=== PATIENT | male | born 2000 | race Caucasian/White ===

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

== ENCOUNTER 2023-10-27 13:30 | Outpatient (RCR) | payer OTHER, MEDICAID, SELFPAY ==
--- NOTE | 2023-09-08 15:21 | HP.PTEVAL_ITS ---
Patient's Visit Information Visit Information Visit Information: COLTON BROWN is a 23 year old M referred to Physical Therapy by Darvin Trinh PA-C with a diagnosis of LATERAL DISLOCATION OF LEFT PATELLA. Date of Evaluation: 09/08/23 Physical Therapist: Freddy Oviedo, PT, Cert MDT, OCS Visit Plan Frequency: 2-3x /Week Duration: 6 Weeks Plan: WBAT WITH CRUTCHES WITH BRACE LOOCKED IN EXTENSION [place] TO UNLOCK 80 DEGREES PT INTERVENTIONS ROM INITIALLY MAT EXERCISES 4 WAY SLR,STRENGTHENING QUADS/HAMS/HIP CLOSED CHAIN , PROPRIOCEPTION ,FUNCTIONAL STRENGTHENING AND ESTIM/CP AND VASO FOR EDEMA KNEE Subjective Subjective: This 23 y/o male presents to physical therapy with left knee patella lateral dislocation. Patient fell 08/26/23 dislocated patella and relocated when stood up assist by father. Patient seen [facility] 08/29/[address] in brace locked in extension with walking WBAT with crutches and able to unlock to 80 degrees. Patient did x-rays-. Patient had no medication. Patient edema in knee which has improved. Patient pain getting better otherwise global knee. Patient denies paresthesia/tingling -. Patient has limitations with walking and standing unable to squat and kneeling. Patient unable RTW.Patient does steps one step at time. Patient condition affects QOL and function. Patient goals to decrease pain and return to prior level of function. SOCAIL: LIVES WITH PARENTS VOACTION: cafe Objective Objective: POSTURE: mild forward posture hips/knee flexed left side -Patella justo- GAIT: ambulates with crutches with WBAT with brace 2 point gait NEURO:denies paresthesia/tingling PALPATION: global patella medial lateral AROM: 5 -85 Degrees supine flexion MMT: (peak force) quads/hams 0/5 ,hip flexion 10.8 ,hip abd 0 QUADS SET: poor OBSERVATION: atrophied quads EDEMA: joint line 47.8 cm Special Tests R Knee Valgus - MCL: Negative R Knee Varus - LCL: Negative R Knee Patellar Apprehension - PFS: Negative R Knee Patellar Grind - PFS: Negative Balance/Special Test Scores Lower Extremity Functional Score: 25 Goals Goal 1:: Patient to be I with HEP Goal Time Frame: 4-6 Weeks Goal 2:: Patient to normalize gait Goal Time Frame: 4-6 Weeks Goal 3:: Patient to improve AROM knee flexion 0-125 degrees to improve stairs Goal Time Frame: 4-6 Weeks Goal 4:: Patient to improve peak force quads/hams /hip by 15-20 # strength to improve function Goal Time Frame: 4-6 Weeks Goal 5:: Patient to improve LFES score by 10-15 points to improve function and QOL Goal Time Frame: 6-8 Weeks Rehabilitation Potential Physical Therapy Diagnosis: This patient dislocated patella and relocated on own with pain ,edema ,decrease ROM ,weakness quads/hams /hip impairs gait and poor proprioception thus benefit from skilled PT Rehabilitation Potential: Good Anticipated Interventions Patient/Client Instruction: Educate patient on: Condition and Plan of Care For the Purpose of:: To decrease pain, To increase ROM, To improve nutrient delivery to tissue, To increase oxygenation perfusion, To improve muscle performance and motor function, To improve ability to perform ADL's, To increase tolerance to activity/condition/position, To improve ability of physical actions for home/community/work/leisure, To improve health of tissue, To increase flexibility/ROM, To improve balance, To improve health and function and To improve tolerance to ADL's Therapeutic Exercise to Include: Strength training, Endurance training, Balance training, Flexibilty training, Gait and locomotor training, Passive ROM and Active ROM Comment: QUADS/HAMS/HIP For the Purpose of:: To decrease pain, To decrease swelling/inflammation, To increase ROM, To improve nutrient delivery to tissue, To increase oxygenation perfusion, To improve muscle performance and motor function, To increase tolerance to activity/condition/position, To improve ability of physical actions for home/community/work/leisure, To improve gait and locomotor functions, To improve health of tissue, To decrease soft tissue restriction, To increase flexibility/ROM, To improve endurance, To improve balance and To reduce risk of recurrence TENS: Yes IF ES: Yes Cryotherapy (ice pack, ice massage): Yes Vasopneumatic device: Yes For the Purpose of:: To decrease pain, To decrease swelling/inflammation, To increase ROM, To improve nutrient delivery to tissue, To increase oxygenation perfusion, To improve health of tissue, To decrease soft tissue restriction and To improve tolerance to ADL's Text: Thank you for the opportunity to evaluate your patient. For Medicare and Medicare HMO plans, please review the plan of care and approve it. It will need to be FAXED BACK to us at [phone] for Medicare purposes. For Medicare only, by signing this I certify the plan of care. Please let me know if there are questions or concerns regarding this plan of care. Physician Ferny field: Date:
--- NOTE | 2023-10-27 13:47 | HP.PTDCSUM ---
Discharge Summary D/C summary: It has been my pleasure to treat COLTON BROWN referred by Darvin Trinh PA-C, with the diagnosis of LATERAL DISLOCATION OF LEFT PATELLA for a total of 13 visit(s). Discharge Date: 10/27/23 Please see the following information for a summary of their discharge status. Subjective Subjective: Seen Dr doing well okay to release to all activity and brace with baseball Overall Improvement % Improvement: 100 Objective Objective/Function: POSTURE: WFL GAIT: normal pratik MMT: quads 36 .8 ,hamstring 33.8 AROM: 0-135 SUPINE KNEE FLEXION Goals Goal 1:: Patient to be I with HEP Goal Progress: Goal Met Goal 2:: Patient to normalize gait Goal Progress: Goal Met Goal 3:: Patient to improve AROM knee flexion 0-125 degrees to improve stairs Goal Progress: Goal Met Goal 4:: Patient to improve peak force quads/hams /hip by 15-20 # strength to improve function Goal Progress: Goal Met Goal 5:: Patient to improve LFES score by 10-15 points to improve function and QOL Goal Progress: Goal Met Plan Plan: D/C TO HEP D/C Information Discharge Comments: HEP d/c sentence: If there are questions or concerns regarding this patient's physical therapy, please feel free to call me at [phone]. Thank you for the referral of this patient. Sincerely, Freddy Oviedo, PT, Cert MDT, OCS Balance/Gait/Functional tests Balance/Special Test Scores Lower Extremity Functional Score: 75 Improvement % Improvement: 100
== END 2023-10-27 19:00 | disposition home or self-care (01) ==
LOC: PT 13:30
PROVIDERS: PCP Nurse Practitioner; Referring Provider Physician Assistant; Visit Provider Physician Assistant
DX: S83.015D Lateral dislocation of left patella, subsequent encounter (principal)
CPT/HCPCS: 97016; 97110; 97162; 97530